=== PATIENT | male | born 1980 | race Caucasian/White ===

== ENCOUNTER 2017-06-05 20:52 | Emergency (ER) | payer OTHER ==
[2017-06-05] MEDS ORDERED: IBUPROFEN 400 MG TAB PO STA (21:56)
[2017-06-05] MEDS ORDERED: DIAZEPAM 5 MG TAB PO STA (21:57)
--- NOTE | 2017-06-05 22:21 | ED ---
Neck Injury/Pain HPI - General Chief Complaint: Neck Pain/Injury Stated Complaint: Neck pain Time Seen by Provider: 06/05/17 21:12 Mode of arrival: ambulatory Limitations: no limitations - History of Present Illness Initial Comments: This patient is a 36-year-old man who presents to be evaluated for neck pain and stiffness that came on yesterday in the morning. The patient states that he believes that he slept in a funny position. He indicates the right trapezius. He states that the pain gets worse if he attempts to extend his neck , if he turns his neck, or with some movements of his right arm. He denies any direct trauma to the neck. He denies weakness or numbness of the extremity. The patient presents today because when he went to work she was having a hard time looking up at screen above his head to make food items. Complaint: neck pain Onset/Timin -: hour(s) Place: home Radiation: right lateral Severity: moderate Quality: aching Consistency: constant Improves With: none Worsens With: movement of extremity, movement of neck Associated Symptoms: none Treatments Prior to Arrival: Ibuprofen - Related Data Previous Rx's Medication Instructions Recorded Ibuprofen [Motrin] 600 mg PO Q8HR PRN #20 tab 06/05/17 Methocarbamol [Robaxin-750] 750 mg PO TID PRN #30 tablet 06/05/17 Allergies Allergy/AdvReac Type Severity Reaction Status Date / Time No Known Allergies Allergy Verified 06/05/17 21:39 Review of Systems ROS Statement: Those systems with pertinent positive or pertinent negative responses have been documented in the HPI. ROS Other: All systems not noted in ROS Statement are negative. Constitutional: Denies: fever, chills, weakness Eyes: Denies: vision change Respiratory: Denies: dyspnea Cardiovascular: Denies: chest pain Gastrointestinal: Denies: abdominal pain Musculoskeletal: Denies: back pain Skin: Denies: rash Neurological: Denies: headache Past Medical History Past Medical History: No Reported History History of Any Multi-Drug Resistant Organisms: None Reported Past Surgical History: No Surgical Hx Reported Past Psychological History: Bipolar, Depression Smoking Status: Current every day smoker Past Alcohol Use History: Occasional Past Drug Use History: None Reported General Exam Limitations: no limitations General appearance: alert, in no apparent distress Head exam: Present: atraumatic, normocephalic Neck exam: Present: tenderness (Right trapezius and paraspinal muscles). Absent : meningismus, full ROM (Patient prefers to hold his head steady, avoiding extension of the neck.), lymphadenopathy, thyromegaly Respiratory exam: Present: normal lung sounds bilaterally. Absent: respiratory distress, wheezes, rales, rhonchi, chest wall tenderness Cardiovascular Exam: Present: regular rate, normal rhythm, normal heart sounds. Absent: systolic murmur, diastolic murmur, rubs, gallop Neurological exam: Present: alert. Absent: motor sensory deficit Skin exam: Present: warm, dry, intact, normal color. Absent: rash Course Vital Signs 06/05/17 06/05/17 21:04 22:47 Temperature 98.2 F 97.8 F Pulse Rate 110 H 95 Respiratory 20 18 Rate Blood Pressure 148/99 157/82 O2 Sat by Pulse 99 97 Oximetry Disposition Clinical Impression: Torticollis Disposition: HOME SELF-CARE Condition: Good Instructions: Cervical Strain (ED) Prescriptions: Ibuprofen [Motrin] 600 mg PO Q8HR PRN #20 tab PRN Reason: Pain Methocarbamol [Robaxin-750] 750 mg PO TID PRN #30 tablet PRN Reason: pain Referrals: None,Stated [Primary Care Provider] - 1-2 days
[2017-06-05 22:48] VITALS: BP 157/82; PULSE 95; RESP 18; TEMP 97.8
== END 2017-06-05 22:47 | disposition home or self-care (01) ==
LOC: EC 20:52
DX: M43.6 Torticollis (principal); F17.200 Nicotine dependence, unspecified, uncomplicated
CPT/HCPCS: 99283

== ENCOUNTER 2020-07-27 06:12 | Inpatient (IN) | payer OTHER ==
[2020-07-27] MEDS ORDERED: NITROGLYCERIN OINT 1 INCH/GM PACKET TOPICAL STA (06:34)
--- NOTE | 2020-07-27 06:38 | ED ---
Chest Pain HPI - General Chief Complaint: Chest Pain Stated Complaint: Chest pain Time Seen by Provider: 07/27/20 06:14 Source: patient, EMS, RN notes reviewed Mode of arrival: EMS Limitations: no limitations - History of Present Illness Initial Comments: This a 39-year-old male presents emergency Department with chief complaint of chest pain. Patient states started while at work. Patient states she had sharp stabbing left-sided chest pain. Patient is nonradiating. Patient states that he's had no prior cardiac disease no past medical history though does not go to a primary care physician. Patient is a daily smoker. Patient denies fevers or chills shortness breath or abdominal pain. Patient was given aspirin, 3 nitro by EMS which has helped his pain. - Related Data Previous Rx's Medication Instructions Recorded Ibuprofen [Motrin] 600 mg PO Q8HR PRN #20 tab 06/05/17 Methocarbamol [Robaxin-750] 750 mg PO TID PRN #30 tablet 06/05/17 Allergies Allergy/AdvReac Type Severity Reaction Status Date / Time No Known Allergies Allergy Verified 07/27/20 06:21 Review of Systems ROS Statement: Those systems with pertinent positive or pertinent negative responses have been documented in the HPI. ROS Other: All systems not noted in ROS Statement are negative. EKG Findings - EKG Comments: EKG Findings:: EKG performed at 6:25 normal sinus rhythm rate of 78 SC 128 QRS 84 QT /QTC 378/4:30 Past Medical History Past Medical History: No Reported History History of Any Multi-Drug Resistant Organisms: None Reported Past Surgical History: No Surgical Hx Reported Past Psychological History: Bipolar, Depression Smoking Status: Current every day smoker Past Alcohol Use History: Occasional Past Drug Use History: Marijuana General Exam General appearance: alert, in no apparent distress Head exam: Present: atraumatic, normocephalic, normal inspection Eye exam: Present: normal appearance, PERRL, EOMI. Absent: scleral icterus, conjunctival injection, periorbital swelling ENT exam: Present: normal exam, mucous membranes moist Neck exam: Present: normal inspection, full ROM. Absent: tenderness, meningismus, lymphadenopathy Respiratory exam: Present: normal lung sounds bilaterally. Absent: respiratory distress, wheezes, rales, rhonchi, stridor Cardiovascular Exam: Present: regular rate, normal rhythm, normal heart sounds. Absent: systolic murmur, diastolic murmur, rubs, gallop, clicks GI/Abdominal exam: Present: soft, normal bowel sounds. Absent: distended, tenderness, guarding, rebound, rigid Extremities exam: Present: normal capillary refill. Absent: pedal edema, calf tenderness Neurological exam: Present: alert, oriented X3 Skin exam: Present: warm, dry, intact, normal color. Absent: rash Course Vital Signs 07/27/20 07/27/20 06:14 06:21 Temperature 97.7 F Pulse Rate 79 Pulse Rate [ 79 [facility] [employer] ] Respiratory 18 Rate Blood Pressure 139/75 O2 Sat by Pulse 98 Oximetry Chest Pain MDM - MDM Patient's first set of enzymes are negative patient did have relief with nitro with a history of smoking. Patient otherwise has not no underlying lipidpanel or prior heart disease is not primary care physician. Patient be admitted for cardiac workup. Disposition Clinical Impression: Chest pain Disposition: ADMITTED IP TO THIS [facility] Condition: Fair Referrals: None,Stated [Primary Care Provider] - 1-2 days
[2020-07-27 06:47] LABS: Basophils % (A) 0 %; Eosinophils # (A) 0.3 k/uL (0-0.7); Eosinophils % (A) 5 %; HCT 41.6 % (39.0-53.0); HGB 14.7 gm/dL (13.0-17.5); Lymphocytes # (A) 1.4 k/uL (1.0-4.8); Lymphocytes % (A) 20 %; MCH 33.3 pg (25.0-35.0); MCHC 35.4 g/dL (31.0-37.0); MCV 93.9 fL (80.0-100.0); Mean Platelet Volume 7.2; Monocytes # (A) 0.3 k/uL (0-1.0); Monocytes % (A) 5 %; Neutrophils # (A) 4.7 k/uL (1.3-7.7); Neutrophils % (A) 69 %; Platelet Count 304 k/uL (150-450); RBC 4.43 m/uL (4.30-5.90); WBC 6.8 k/uL (3.8-10.6)
--- NOTE | 2020-07-27 07:00 | XR ---
EXAM: XR Chest, 2 Views CLINICAL HISTORY: ITS.REASON XR Reason: Chest Pain TECHNIQUE: Frontal and lateral views of the chest. COMPARISON: Chest radiograph October 20, 2014 FINDINGS: Lungs: Unremarkable. No consolidation. Pleural space: Unremarkable. No pneumothorax. Heart: Unremarkable. No cardiomegaly. Mediastinum: Unremarkable. Bones/joints: Unremarkable. IMPRESSION: No focal infiltrate.
[2020-07-27 07:03] LABS: ALT 22 U/L (4-49); AST 23 U/L (17-59); African American GFR (CKD) >90 (>60 ml/min/1.73 sqM); Albumin 4.2 g/dL (3.5-5.0); Alkaline Phosphatase 86 U/L (38-126); Anion Gap 8 mmol/L; Blood Urea Nitrogen 18 mg/dL (9-20); Carbon Dioxide 26 mmol/L (22-30); Chloride 103 mmol/L (98-107); Glucose 111 mg/dL (74-99); Lipase 172 U/L (23-300); Magnesium 2.2 mg/dL (1.6-2.3); Non-African American GFR(CKD) >90 (>60 ml/min/1.73 sqM); Potassium 4.4 mmol/L (3.5-5.1); Sodium 137 mmol/L (137-145); Total Bilirubin 0.4 mg/dL (0.2-1.3)
[2020-07-27 07:16] LABS: INR 0.9 (<1.2); Partial Thromboplastin Time 25.9 sec (22.0-30.0); Prothrombin Time 9.9 sec (9.0-12.0)
[2020-07-27] MEDS ORDERED: NITROGLYCERIN SL TABS 0.4 MG TAB SUBLINGUAL PRN (07:45)
[2020-07-27] MEDS ORDERED: HEPARIN SOD,PORK IN 0.45% NACL 25,000 UNIT in 0.45% NACL 1 250ML.BAG IV SCH (07:45)
[2020-07-27] MEDS ORDERED: HEPARIN SODIUM 1,000 UN/ML (10ML VL) IV ONE (07:45)
[2020-07-27] MEDS ORDERED: SODIUM CHLORIDE 0.9% 1,000 ML IV STA (07:49)
--- NOTE | 2020-07-27 11:01 | P.CRDCN ---
History of Present Illness Consult date: 07/27/20 History of present illness: HISTORY OF PRESENT ILLNESS: This is a 39-year-old male with a past medical history significant for nicotine dependence. Patient does not follow with a performance instructor. We have been asked to see the patient in consultation for chest pain. Patient examined at the bedside in the emergency room. 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 He states he began to have a sharp stabbing pain in the left lower portion of his chest. He states he went to take a break and the pain went away, but as soon as he started working again the pain came back. EMS was called at that time. Patient was given aspirin and nitro by EMS which he states brought his pain down to a 1/10. He reports once he came to the hospital, the pain was gone. He currently denies any pain at the time of examination. Patient denied any shortness of breath with the pain. He reports feeling a little bit as he at the time which has resolved. He denies any radiation of the pain. He denies any nausea or vomiting. The patient does have tenderness upon palpation of left lower chest wall. The pain is not worse with deep inspiration or with movement. EKG reveals sinus mechanism with no signs of acute ischemia. Repeat EKG also reveals sinus mechanism with no signs of acute ischemia. Chest xray negative for acute process Laboratory data: WBC 6.8. Hemoglobin 14.7. Platelet count 304. Sodium 137. Potassium 4.4. BUN 18. Creatinine 0.75. Magnesium 2.2. Troponin negative 2. Current home cardiac medications include none REVIEW OF SYSTEMS: At the time of my exam: CONSTITUTIONAL: Denies fever or chills. HEENT: Denies blurred vision, vision changes, or eye pain. Denies hemoptysis CARDIOVASCULAR: Denies chest pain. Denies orthopnea. Denies PND. Denies palpitations RESPIRATORY: Denies shortness of breath. GASTROINTESTINAL: Denies abdominal pain. Denies nausea or vomiting. HEMATOLOGIC: Denies bleeding disorders. GENITOURINARY: Denies any blood in urine. SKIN: Denies pruitis. Denies rash. PHYSICAL EXAM: VITAL SIGNS: Reviewed. GENERAL: Well-developed in no acute distress. HEENT: Head is normocephalic. Pupils are equal, round. Sclerae anicteric. Mucous membranes of the mouth are moist. Neck supple. No JVD or thyromegaly LUNGS: Respirations even and unlabored. Lungs essentially clear to auscultation bilaterally. Tenderness with left lower wall chest palpation. HEART: Regular rate and rhythm. S1 and S2 heard. ABDOMEN: Soft. Nondistended. Nontender. EXTREMITIES: Normal range of motion. No clubbing or cyanosis. Peripheral pulses intact. No lower extremity edema NEUROLOGIC: Awake and alert. Oriented x 3. ASSESSMENT: Chest pain, troponins negative 2 Nicotine dependence Obesity: BMI 41.1 PLAN: An acute coronary event has been ruled out as patient has had 2 negative troponins and 2 unremarkable EKGs performed Discontinue IV heparin. Discontinue aspirin Obtain lipid panel Obtain hemoglobin A1c Patient may be discharged home today from a cardiac standpoint and follow up outpatient. Nurse practitioner note has been reviewed by physician. Signing provider agrees with the documented findings, assessment, and plan of care. Past Medical History Past Medical History: No Reported History History of Any Multi-Drug Resistant Organisms: None Reported Past Surgical History: No Surgical Hx Reported Past Psychological History: Bipolar, Depression Smoking Status: Current every day smoker Past Alcohol Use History: Occasional Past Drug Use History: Marijuana Medications and Allergies Home Medications Medication Instructions Recorded Confirmed Type No Known Home Medications 07/27/20 07/27/20 History Allergies Allergy/AdvReac Type Severity Reaction Status Date / Time No Known Allergies Allergy Verified 07/27/20 08:20 Physical Exam Vitals: Vital Signs Temp Pulse Pulse Resp BP Pulse Ox 07/27/20 08:00 66 18 128/75 99 07/27/20 07:51 97.9 F 67 16 128/75 100 07/27/20 06:21 79 07/27/20 06:14 97.7 F 79 18 139/75 98 Intake and Output 07/26/20 07/27/20 07/27/20 22:59 06:59 14:59 Other: Weight 145.15 kg Results 07/27/20 06:36 07/27/20 06:36 Cardiac Enzymes 07/27/20 07/27/20 Range/Units 06:36 06:36 AST 23 (17-59) U/L Troponin I <0.012 (0.000-0.034) ng/mL Coagulation 07/27/20 Range/Units 06:36 PT 9.9 (9.0-12.0) sec APTT 25.9 (22.0-30.0) sec CBC 07/27/20 Range/Units 06:36 WBC 6.8 (3.8-10.6) k/uL RBC 4.43 (4.30-5.90) m/uL Hgb 14.7 (13.0-17.5) gm/dL Hct 41.6 (39.0-53.0) % Plt Count 304 (150-450) k/uL Comprehensive Metabolic Panel 07/27/20 Range/Units 06:36 Sodium 137 (137-145) mmol/L Potassium 4.4 (3.5-5.1) mmol/L Chloride 103 (98-107) mmol/L Carbon Dioxide 26 (22-30) mmol/L BUN 18 (9-20) mg/dL Creatinine 0.75 (0.66-1.25) mg/dL Glucose 111 H (74-99) mg/dL Calcium 9.0 (8.4-10.2) mg/dL AST 23 (17-59) U/L ALT 22 (4-49) U/L Alkaline Phosphatase 86 (38-126) U/L Total Protein 7.0 (6.3-8.2) g/dL Albumin 4.2 (3.5-5.0) g/dL Current Medications Generic Name Dose Route Start Last Admin Trade Name Freq PRN Reason Stop Dose Admin Aspirin 325 mg 07/28/20 09:00 Aspirin 325 Mg Tab PO DAILY ROSAMARIA Heparin Sodium/Sodium Chloride 250 mls @ 9.986 mls/hr 07/27/20 07:45 07/27/20 09:01 25,000 unit/ Sodium Chloride IV 6.88 units/kg/hr .Q24H ROSAMARIA 9.986 mls/hr Administration Protocol 6.88 UNITS/KG/HR Sodium Chloride 1,000 mls @ 20 mls/hr 07/27/20 07:49 07/27/20 08:58 Saline 0.9% IV 07/28/20 07:48 20 mls/hr .Q24H STA Administration Nitroglycerin 0.4 mg 07/27/20 07:45 Nitroglycerin Sl Tabs 0.4 Mg Tab SUBLINGUAL Q5M PRN Chest Pain Intake and Output 07/26/20 07/27/20 07/27/20 22:59 06:59 14:59 Other: Weight 145.15 kg 07/27/20 06:36 07/27/20 06:36
[2020-07-27 11:05] VITALS: RESP 16
[2020-07-27 12:24] VITALS: BP 148/81; PULSE 88; TEMP 98
--- NOTE | 2020-07-27 15:19 | P.DS ---
Providers Date of admission: 07/27/20 09:27 Attending physician: Lona Sainz Consults: 07/27/20 07:45 Consult Physician Urgent Consulting Provider: Nani Figueroa Consult Reason/Comments: chest pain Do you want consulting provider notified?: Yes Primary care physician: Stated None Hospital Course: Please refer to HPI for further details Patient Condition at Discharge: Fair Plan - Discharge Summary New Discharge Prescriptions: No Action No Known Home Medications Discharge Medication List No Known Home Medications 07/27/20 [History] Follow up Appointment(s)/Referral(s): Efrain Weinberg MD [STAFF PHYSICIAN] - 2 Weeks ([facility] will call you with an appointment.) Lew Galvan MD [REFERRING] - 1 Week (Please call the office to schedule your appointment.) Patient Instructions/Handouts: Chest Pain (DC) Discharge Disposition: HOME SELF-CARE
--- NOTE | 2020-07-27 15:19 | P.HPIM ---
History of Present Illness Patient came in with mild chest pain on the left side of the chest. Patient the chest pain sharp stabbing lower portion of his chest. Which only lasted for few minutes patient denied any radiation or diaphoresis nausea lightheadedness shortness of breath. Patient just pain is nonpleuritic not associated with food denied any nausea vomiting. Patient was admitted for rule out of acute coronary syndromes which are ruled out. EKG showed sinus rhythm troponins were negative chest x-ray did not show any significant abnormality patient was evaluated cardiology cleared for discharge patient appears to have noncardiac mostly musc uloskeletal chest pain which resolved at this time. Review of Systems REVIEW OF SYSTEMS: CONSTITUTIONAL: No fever, no malaise, no fatigue. HEENT: No recent visual problems or hearing problems. Denied any sore throat. CARDIOVASCULAR: No orthopnea, PND, no palpitations, no syncope. PULMONARY: No shortness of breath, no cough, no hemoptysis. GASTROINTESTINAL: No diarrhea, no nausea, no vomiting, no abdominal pain. NEUROLOGICAL: No headaches, no weakness, no numbness. HEMATOLOGICAL: Denies any bleeding or petechiae. GENITOURINARY: Denies any burning micturition, frequency, or urgency. MUSCULOSKELETAL/RHEUMATOLOGICAL: Denies any joint pain, swelling, or any muscle pain. ENDOCRINE: Denies any polyuria or polydipsia. The rest of the 14-point review of systems is negative. Past Medical History Past Medical History: No Reported History History of Any Multi-Drug Resistant Organisms: None Reported Past Surgical History: No Surgical Hx Reported Past Psychological History: Bipolar, Depression Smoking Status: Current every day smoker Past Alcohol Use History: Occasional Past Drug Use History: Marijuana Medications and Allergies Home Medications Medication Instructions Recorded Confirmed Type No Known Home Medications 07/27/20 07/27/20 History Allergies Allergy/AdvReac Type Severity Reaction Status Date / Time No Known Allergies Allergy Verified 07/27/20 08:20 Physical Exam Vitals: Vital Signs Temp Pulse Pulse Resp BP Pulse Ox 07/27/20 12:21 98 F 88 16 148/81 98 07/27/20 11:00 63 16 133/98 98 07/27/20 10:00 76 15 120/79 97 07/27/20 09:00 66 15 139/72 98 07/27/20 08:00 66 18 128/75 99 07/27/20 07:51 97.9 F 67 16 128/75 100 07/27/20 06:21 79 07/27/20 06:14 97.7 F 79 18 139/75 98 Intake and Output 07/27/20 07/27/20 07/27/20 06:59 14:59 22:59 Other: Weight 145.15 kg PHYSICAL EXAMINATION: GENERAL: The patient is alert and oriented x3, not in any acute distress. Obese HEENT: Pupils are round and equally reacting to light. EOMI. No scleral icterus. No conjunctival pallor. Normocephalic, atraumatic. No pharyngeal erythema. No thyromegaly. CARDIOVASCULAR: S1 and S2 present. No murmurs, rubs, or gallops. PULMONARY: Chest is clear to auscultation, no wheezing or crackles. ABDOMEN: Soft, nontender, nondistended, normoactive bowel sounds. No palpable organomegaly. MUSCULOSKELETAL: No joint swelling or deformity. EXTREMITIES: No cyanosis, clubbing, or pedal edema. NEUROLOGICAL: Gross neurological examination did not reveal any focal deficits. SKIN: No rashes. Results CBC & Chem 7: 07/27/20 06:36 07/27/20 06:36 Labs: Abnormal Lab Results - Last 24 Hours (Table) 07/27/20 Range/Units 06:36 Glucose 111 H (74-99) mg/dL Assessment and Plan Plan: -Chest pain: Noncardiac atypical troponins were negative rule out a acute coronary syndromes, was a evaluated by cardiology is being discharged today. -Obesity -Nicotine use: Counseling was provided -Depression -
--- NOTE | 2020-07-27 18:16 | ECHOF ---
Referral Reason:chest pain MEASUREMENTS -------- HEIGHT: 188.0 cm WEIGHT: 145.1 kg BP: 128/75 RVIDd: 3.7 cm (< 3.3) IVSd: 2.0 cm (0.6 - 1.1) LVIDd: 4.3 cm (3.9 - 5.3) LVPWd: 1.5 cm (0.6 - 1.1) IVSs: 2.6 cm LVIDs: 2.6 cm LVPWs: 2.2 cm LA Diam: 3.6 cm (2.7 - 3.8) LAESV Index (A-L): 15.91 ml/m Ao Diam: 3.6 cm (2.0 - 3.7) AV Cusp: 2.8 cm (1.5 - 2.6) MV EXCURSION: 18.072 mm (> 18.000) MV EF SLOPE: 74 mm/s (70 - 150) EPSS: 0.3 cm MV E Brodie: 0.82 m/s MV DecT: 171 ms MV A Brodie: 0.47 m/s MV E/A Ratio: 1.75 RAP: 5.00 mmHg RVSP: 36.99 mmHg FINDINGS -------- Sinus rhythm. This was a technically difficult study with suboptimal views. The left ventricular size is normal. There is severe concentric left ventricular hypertrophy. Ove rall left ventricular systolic function is normal with, an EF between 55 - 60 %. The right ventricle is mildly enlarged. The left atrial size is normal. The right atrium is mildly enlarged. 5.0mg of Lumason was utilized for enhancement of images Interatrial and interventricular septum intact. There is no evidence of aortic regurgitation. There is no evidence of aortic stenosis. Mild mitral regurgitation is present. Mild tricuspid regurgitation present. There is mild pulmonary hypertension. The right ventricular systolic pressure, as measured by Doppler, is 36.99mmHg. There is no pulmonic regurgitation present. The aortic root size is normal. IVC Not well visulized. There is a trivial pericardial effusion present. CONCLUSIONS -------- 1. The left ventricular size is normal. 2. There is severe concentric left ventricular hypertrophy. 3. Overall left ventricular systolic function is normal with, an EF between 55 - 60 %. 4. The right ventricle is mildly enlarged. 5. The right atrium is mildly enlarged. 6. There is no evidence of aortic regurgitation. 7. There is no evidence of aortic stenosis. 8. Mild mitral regurgitation is present. 9. Mild tricuspid regurgitation present. 10. There is mild pulmonary hypertension. 11. The right ventricular systolic pressure, as measured by Doppler, is 36.99mmHg. 12. There is a trivial pericardial effusion present. SEARCH ENGINE MARKETING SPECIALIST: Melinda Pickard RDCS
[2020-07-27 19:30] LABS: Hemoglobin A1C 5.6 % (4.0-6.0)
[2020-07-27 20:39] LABS: Chol/HDL Ratio 3.53; LDL Cholesterol,Calculated 125.6 mg/dL (0.0-131.0); VLDL Calculation 18.4 mg/dL (5.00-40.00)
[2020-07-28] MEDS ORDERED: ASPIRIN 325 MG TAB PO SCH (09:00)
== END 2020-07-27 13:09 | disposition home or self-care (01) | DRG 313 ==
LOC: EC 06:12 → OBSVTOIN 09:27 → 6NMEDSUR 09:27
PROVIDERS: ADMIT Hospitalist; ATTEND Hospitalist
DX: R07.9 Chest pain, unspecified (principal); Z68.41 Body mass index [BMI] 40.0-44.9, adult; Z20.822 Contact with and (suspected) exposure to COVID-19; F17.200 Nicotine dependence, unspecified, uncomplicated; F31.9 Bipolar disorder, unspecified; E66.9 Obesity, unspecified
CPT/HCPCS: 36415; 71046; 80053; 80061; 83036; 83690; 83735; 84484; 85025; 85610; 85730; 87635; 93005; 93306; 99285

== ENCOUNTER 2024-07-21 09:31 | Emergency (ER) | payer OTHER ==
[2024-07-21 09:36] VITALS: RESP 18; TEMP 97.5
--- NOTE | 2024-07-21 10:03 | ED ---
Chest Pain HPI - General Chief Complaint: Chest Pain Stated Complaint: chest pain Time Seen by Provider: 07/21/24 09:42 Source: patient, RN notes reviewed Mode of arrival: ambulatory Limitations: no limitations - History of Present Illness Initial Comments: 43-year-old male presents emergency department chief complaint of intermittent chest discomfort, shortness of breath. He states that this has been ongoing and on and off for the last month states is more exertional. Patient denies any reports of fever chills no prior cardiac disease no history of DVT or PE. Patient states that he noticed with some exertion including walking over which he states after intercourse he becomes dyspneic. Patient denies any prior lung disease denies any headache or dizziness no leg pain or leg swelling. He does admit that he is a daily smoker. - Related Data Home Medications Medication Instructions Recorded Confirmed No Known Home Medications 07/27/20 07/21/24 Allergies Allergy/AdvReac Type Severity Reaction Status Date / Time No Known Allergies Allergy Verified 07/21/24 11:36 Review of Systems ROS Statement: Those systems with pertinent positive or pertinent negative responses have been documented in the HPI. ROS Other: All systems not noted in ROS Statement are negative. EKG Findings - EKG Comments: EKG Findings:: EKG performed at 9: 46 sinus rhythm rate of 88 DE 130 QRS 89 QT/QTc 368/[address] elevation or depression noted. - EKG Results: EKG: interpreted by ZE Past Medical History Past Medical History: No Reported History History of Any Multi-Drug Resistant Organisms: None Reported Past Surgical History: No Surgical Hx Reported Past Psychological History: Bipolar, Depression Smoking Status: Current every day smoker Past Alcohol Use History: Occasional Past Drug Use History: Marijuana General Exam Limitations: no limitations General appearance: alert, in no apparent distress Head exam: Present: atraumatic, normocephalic, normal inspection Eye exam: Present: normal appearance, PERRL, EOMI. Absent: scleral icterus, conjunctival injection, periorbital swelling ENT exam: Present: normal exam, normal oropharynx, mucous membranes moist Neck exam: Present: normal inspection, full ROM. Absent: tenderness, meningismus, lymphadenopathy Respiratory exam: Present: normal lung sounds bilaterally. Absent: respiratory distress, wheezes, rales, rhonchi, stridor Cardiovascular Exam: Present: regular rate, normal rhythm, normal heart sounds. Absent: systolic murmur, diastolic murmur, rubs, gallop, clicks GI/Abdominal exam: Present: soft, normal bowel sounds. Absent: distended, tenderness, guarding, rebound, rigid Course Vital Signs 07/21/24 07/21/24 07/21/24 09:33 11:00 12:02 Temperature 97.5 F L Pulse Rate 95 79 82 Respiratory 18 18 18 Rate Blood Pressure 155/98 153/93 151/87 O2 Sat by Pulse 97 97 97 Oximetry Chest Pain MDM - MDM Was pt. sent in by a medical professional or institution (, [employer], [employer] FIN[employer], urgent care, hospital, or snf...) When possible be specific @ -No Did you speak to anyone other than the patient for history (EMS, parent, family, police, friend...)? What history was obtained from this source @ -No Did you review nursing and triage notes (agree or disagree)? Why? @ -I reviewed and agree with nursing and triage notes Were old charts reviewed (outside hosp., previous admission, EMS record, old EKG, old radiological studies, urgent care reports/EKG's, snf records)? Report findings @ -No old charts were reviewed Differential Diagnosis (chest pain, altered mental status, abdominal pain women, abdominal pain men, vaginal bleeding, weakness, fever, dyspnea, syncope, headache, dizziness, GI bleed, back pain, seizure, CVA, palpatations, mental health, musculoskeletal)? @ -Differential Chest Pain: Stable Angina, Unstable Angina, STEMI, NSTEMI Aortic Dissection, Pneumothorax, Musculoskeletal, Esophageal Spasm GERD, Cholecystitis, Pancreatitis, Zoster, this is not meant to be an all-inclusive list. EKG interpreted by me (3pts min.). @ -As above X-rays interpreted by me (1pt min.). @ -Chest shows no acute cardiopulmonary process. CT interpreted by me (1pt min.). @ -None done U/S interpreted by me (1pt. min.). @ -None done What testing was considered but not performed or refused? (CT, X-rays, U/S, labs)? Why? @ -None What meds were considered but not given or refused? Why? @ -None Did you discuss the management of the patient with other professionals (professionals i.e. , [employer], [employer] FINISHER, lab, RT, psych nurse, social welfare administrator, set up operator tool, teacher, credit review officer, manager case)? Give summary @ -No Was smoking cessation discussed for >3mins.? @ -No Was critical care preformed (if so, how long)? @ -No Were there social determinants of health that impacted care today? How? (Homelessness, low income, unemployed, alcoholism, drug addiction, transportation, low edu. Level, literacy, decrease access to med. care, longterm, rehab)? @ -No Was there de-escalation of care discussed even if they declined (Discuss DNR or withdrawal of care, Hospice)? DNR status @ -No What co-morbidities impacted this encounter? (DM, HTN, Smoking, COPD, CAD, Cancer, CVA, ARF, Chemo, Hep., AIDS, mental health diagnosis, sleep apnea, morbid obesity)? @ -None Was patient admitted / discharged? Hospital course, mention meds given and route, prescriptions, significant lab abnormalities, going to OR and other pertinent info. @ -discharge patient presented for intermittent chest pain, dyspnea over the last 1 month. Initial troponin is negative. I did recommend and ordered second troponin patient refuses stating that they need to go do other things understand the risk of leaving and not completing full workup. Patient was scheduled multiple outpatient appointments. Patient discharged in stable condition. Undiagnosed new problem with uncertain prognosis? @ -No Drug Therapy requiring intensive monitoring for toxicity (Heparin, Nitro, Insulin, Cardizem)? @ -No Were any procedures done? @ -No Diagnosis/symptom? @ -Chest pain, dyspnea Acute, or Chronic, or Acute on Chronic? @ -Acute Uncomplicated (without systemic symptoms) or Complicated (systemic symptoms)? @ complicated Side effects of treatment? @ -No Exacerbation, Progression, or Severe Exacerbation? @ -No Poses a threat to life or bodily function? How? (Chest pain, [place], [place], pneumonia, PE, COPD, DKA, ARF, appy, cholecystitis, CVA, Diverticulitis, Homicidal, Suicidal, threat to staff... and all critical care pts) @ -No Disposition Clinical Impression: Chest pain Disposition: HOME SELF-CARE Condition: Poor Instructions (If sedation given, give patient instructions): Chest Pain (ED) Additional Instructions: Please return to the Emergency Department if symptoms worsen or any other concerns. Is patient prescribed a controlled substance at d/c from ED?: No Referrals: Pérez Correia MD [STAFF PHYSICIAN] - 1-2 days (Contact a primary care office to become established with a provider.) [facility] [NON-STAFF] - 1-2 days (Contact a primary care office to become established with a provider.) [facility] [NON-STAFF] - As Soon As Possible (Clinic for [facility] residents with no insurance or who are under insured.) Forms: Area PCPs Time of Disposition: 11:54
[2024-07-21 10:29] LABS: Basophils % (A) 1 %; Eosinophils # (A) 0.4 k/uL (0-0.7); Eosinophils % (A) 5 %; HCT 44.6 % (39.0-53.0); HGB 14.8 gm/dL (13.0-17.5); Lymphocytes # (A) 1.8 k/uL (1.0-4.8); Lymphocytes % (A) 24 %; MCH 30.9 pg (25.0-35.0); MCHC 33.2 g/dL (31.0-37.0); MCV 93.2 fL (80.0-100.0); Mean Platelet Volume 7.2; Monocytes # (A) 0.3 k/uL (0-1.0); Monocytes % (A) 5 %; Neutrophils # (A) 4.8 k/uL (1.3-7.7); Neutrophils % (A) 64 %; Platelet Count 294 k/uL (150-450); RBC 4.78 m/uL (4.30-5.90); RDW 13.4 % (11.5-15.5); WBC 7.4 k/uL (3.8-10.6)
[2024-07-21 10:43] LABS: INR 0.9 (<1.2); Partial Thromboplastin Time 26.6 sec (22.0-30.0); Prothrombin Time 10.3 sec (10.0-12.5)
[2024-07-21 10:45] LABS: ALT 22 U/L (4-49); AST 19 U/L (17-59); African American GFR (CKD) >90 (>60 ml/min/1.73 sqM); Albumin 4.2 g/dL (3.5-5.0); Alkaline Phosphatase 86 U/L (38-126); Anion Gap 6 mmol/L; Blood Urea Nitrogen 19 mg/dL (9-20); Calcium 8.4 mg/dL (8.4-10.2); Carbon Dioxide 31 mmol/L (22-30); Chloride 101 mmol/L (98-107); Glucose 106 mg/dL (74-99); Magnesium 2.1 mg/dL (1.6-2.3); Non-African American GFR(CKD) >90 (>60 ml/min/1.73 sqM); Potassium 4.5 mmol/L (3.5-5.1); Sodium 138 mmol/L (137-145); Total Bilirubin 0.4 mg/dL (0.2-1.3); Total Protein 7.1 g/dL (6.3-8.2)
[2024-07-21 10:53] LABS: NT-Pro-B-Type Natriuretic Pept 41 pg/mL
--- NOTE | 2024-07-21 11:19 | XR ---
EXAMINATION TYPE: XR chest 2V DATE OF EXAM: 07/21/2024 10:59 AM COMPARISON: Chest radiographs from 07/27/2020. CLINICAL INDICATION: Male, 43 years old with history of Chest Pain; [facility] TECHNIQUE: XR chest 2V Frontal and lateral views of the chest. FINDINGS: Lungs/Pleura: There is no evidence of pleural effusion, focal consolidation, or pneumothorax. Pulmonary vascularity: Unremarkable. Heart/mediastinum: Cardiomediastinal silhouette is unremarkable. Musculoskeletal: No acute osseous pathology. IMPRESSION: No acute cardiopulmonary disease/process. [facility], , 07/21/2024 11:17 AM
[2024-07-21 12:04] VITALS: BP 151/87; PULSE 82
== END 2024-07-21 12:04 | disposition home or self-care (01) ==
LOC: EC 09:31
DX: R07.89 Other chest pain (principal); R06.02 Shortness of breath; F17.200 Nicotine dependence, unspecified, uncomplicated
CPT/HCPCS: 36415; 71046; 80053; 83735; 83880; 84484; 85025; 85379; 85610; 85730; 93005; 99285